=== PATIENT | male | born 1995 | race Caucasian/White ===

== ENCOUNTER 2018-11-06 09:18 | Emergency (ER) | payer OTHER ==
--- NOTE | 2018-11-06 09:32 | ED Physician Documentation ---
PD HPI CHEST PAIN - Stated complaint Stated Complaint: CHEST PAIN - Chief complaint Chief Complaint: Cardiac - History obtained from History obtained from: Patient - History of Present Illness Timing - onset: How many weeks ago (1) Timing - onset during: Other (randomly hurting anterior chest, not related to position, activity, eating, breathing. Has had mild cough and sore throat this week.) Timing - details: Intermittant (more frequent the past 1-2 days, hurting sharp at times for seconds/minute or so.) Quality: Aching, Sharp, Pain Location: Substernal Radiation: Right upper extremity (shoulder). No: Jaw, Neck, Back Worsened by: No: Exertion, Inspiration, Eating, Movement Associated symptoms: Cough (mild cough this week, along with some sore throat.). No: Shortness of air, Nausea, Palpitations Similar symptoms before: Has not had sx before Recently seen: Not recently seen Review of Systems Constitutional: denies: Fever, Chills, Myalgias Nose: denies: Rhinorrhea / runny nose, Congestion Throat: reports: Sore throat (mild for a week) Cardiac: denies: Palpitations Respiratory: reports: Cough (mild for a week). denies: Dyspnea, Wheezing GI: denies: Nausea, Vomiting, Diarrhea Skin: denies: Rash, Lesions Musculoskeletal: denies: Extremity swelling Neurologic: denies: Near syncope Psychiatric: reports: Anxiety. denies: Depressed, Suicidal, Insomnia PD PAST MEDICAL HISTORY - Past Medical History Cardiovascular: None Respiratory: None Neuro: None Endocrine/Autoimmune: None - Present Medications Home Medications: Ambulatory Orders Medication Instructions Recorded Confirmed Naproxen 500 mg PO BID #20 tablet 11/06/18 - Allergies Allergies/Adverse Reactions: Allergies Allergy/AdvReac Type Severity Reaction Status Date / Time No Known Drug Allergies Allergy Verified 11/06/18 09:25 PD ED PE NORMAL - Vitals Vital signs reviewed: Yes - General General: Alert and oriented X 3, No acute distress, Well developed/nourished - HEENT HEENT: Pharynx benign - Neck Neck: Supple, no meningeal sign, No adenopathy - Cardiac Cardiac: RRR, No murmur - Respiratory Respiratory: Clear bilaterally, Other (no chestwall tenderness) - Abdomen Abdomen: Soft, Non tender, Non distended - Derm Derm: Normal color, Warm and dry - Extremities Extremities: No edema, No calf tenderness / cord - Neuro Neuro: Alert and oriented X 3, No motor deficit, Normal speech Results - Vitals Vitals: Vital Signs - 24 hr 11/06/18 11/06/18 09:22 09:35 Temperature 37.1 C Heart Rate 77 76 Respiratory 17 21 Rate Blood Pressure 148/68 H 134/69 H O2 Saturation 99 98 Oxygen O2 Source Room air - EKG (time done) in ER Rhythm: NSR [place]: Normal Intervals: Normal [place] QRS: Normal Ischemia: Normal ST segments. No: ST elevation c/w ischemia, ST depression - Labs Labs: Laboratory Tests 11/06/18 11/06/18 11/06/18 09:59 09:59 09:59 WBC 5.3 RBC 4.94 Hgb 15.0 Hct 43.1 MCV 87.2 MCH 30.4 MCHC 34.8 RDW 12.5 Plt Count 225 MPV 8.9 Neut # (Auto) 2.7 Lymph # (Auto) 1.9 [place] # (Auto) 0.6 Eos # (Auto) 0.2 Baso # (Auto) 0.0 Absolute Nucleated RBC 0.00 Nucleated RBC % 0.0 ESR 1 Sodium 139 Potassium 4.0 Chloride 103 Carbon Dioxide 24 Anion Gap 12.0 BUN 15 Creatinine 0.9 Estimated GFR (MDRD) 107 Glucose 94 Calcium 9.4 Magnesium 2.0 Total Bilirubin 1.1 H AST 19 ALT 15 Alkaline Phosphatase 71 Troponin I B-Natriuretic Peptide Total Protein 7.2 Albumin 4.6 Globulin 2.6 Albumin/Globulin Ratio 1.8 Lipase 28 11/06/18 11/06/18 09:59 09:59 WBC RBC Hgb Hct MCV MCH MCHC RDW Plt Count MPV Neut # (Auto) Lymph # (Auto) [place] # (Auto) Eos # (Auto) Baso # (Auto) Absolute Nucleated RBC Nucleated RBC % ESR Sodium Potassium Chloride Carbon Dioxide Anion Gap BUN Creatinine Estimated GFR (MDRD) Glucose Calcium Magnesium Total Bilirubin AST ALT Alkaline Phosphatase Troponin I < 0.04 B-Natriuretic Peptide 8 Total Protein Albumin Globulin Albumin/Globulin Ratio Lipase - Rads (name of study) chest xray Radiology: Prelim report reviewed (normal), EMP read contemporaneously, See rad report PD MEDICAL DECISION MAKING - ED course Complexity details: reviewed results (Tests are normal. His symptoms are fleeting sharp and atypical. It does not sound like ACS or cardiomyopathy. He has had some mild upper respiratory symptoms of sore throat and cough. Presume some viral chest wall inflammation. Could also be musculoskeletal. Will treat with anti-inflammatories.), considered differential, d/w patient Departure - Departure Disposition: 01 Home, Self Care Clinical Impression: Chest pain Qualifiers: Chest pain type: precordial pain Qualified Code(s): R07.2 - Precordial pain Condition: Stable Record reviewed to determine appropriate education?: Yes Instructions: ED Chest Pain NonCardiac Follow-Up: [facility] [Provider Group] Prescriptions: Naproxen 500 mg PO BID #20 tablet Comments: No signs of serious causes such as heart lungs or vascular. Presume some musculoskeletal pain. I would treated with naproxen anti-inflammatory with food twice daily for the next 7 to 10 days. Add Tylenol if needed. Follow-up with your primary care if not improved over the next few days.
[2018-11-06] MEDS ORDERED: IBUPROFEN 600 MG TABLET PO STA (09:46)
[2018-11-06] MEDS ORDERED: ACETAMINOPHEN 325 MG TABLET PO STA (09:47)
[2018-11-06 10:04] LABS: BASOPHILS % (AUTO) 0.4 %; EOSINOPHILS # (AUTO) 0.2 10^3/uL (0.0-0.7); EOSINOPHILS % (AUTO) 3.9 %; LYMPHOCYTES # (AUTO) 1.9 10^3/uL (1.5-3.5); MEAN CORPUSCULAR HEMOGLOBIN 30.4 pg (27.0-31.0); MEAN CORPUSCULAR HGB CONC 34.8 g/dL (32.0-36.0); MEAN CORPUSCULAR VOLUME 87.2 fL (80.0-94.0); MEAN PLATELET VOLUME 8.9 fL (7.4-11.4); MONOCYTES # (AUTO) 0.6 10^3/uL (0.0-1.0); MONOCYTES % (AUTO) 10.5 %; NEUTROPHILS # (AUTO) 2.7 10^3/uL (1.5-6.6); NEUTROPHILS % (AUTO) 49.8 %; PLT - PLATELET COUNT 225 10^3/uL (130-450); RED BLOOD COUNT 4.94 10^6/uL (4.70-6.10); RED CELL DISTRIBUTION WIDTH 12.5 % (12.0-15.0); WHITE BLOOD COUNT 5.3 x10^3/uL (4.8-10.8)
[2018-11-06 10:19] LABS: ALBUMIN 4.6 g/dL (3.2-5.5); ALBUMIN/GLOBULIN RATIO 1.8 (1.0-2.2); BILIRUBIN,TOTAL 1.1 mg/dL (0.2-1.0); CALCIUM 9.4 mg/dL (8.5-10.3); CREATININE 0.9 mg/dL (0.6-1.2); TOTAL PROTEIN 7.2 g/dL (6.7-8.2)
--- NOTE | 2018-11-06 10:24 | XRAY Report ---
Reason: anterior chest pain; some cough Procedure Date: 11/06/2018 Accession Number: [id number] / [id number] Procedure: XR - Chest 2 View X-Ray CPT Code: 11409 FULL RESULT: EXAM: CHEST RADIOGRAPHY EXAM DATE: 11/06/2018 10:13 AM. CLINICAL HISTORY: Anterior chest pain; some cough. COMPARISON: None. TECHNIQUE: 2 views. FINDINGS: Lungs/Pleura: No focal opacities evident. No pleural effusion. No pneumothorax. Normal volumes. Mediastinum: Heart and mediastinal contours are unremarkable. Other: No acute osseous abnormalities. Mild pectus excavatum. IMPRESSION: 1. No acute disease in the chest. [facility]
[2018-11-06] MEDS ORDERED: CHERRY SYRUP 10 ML UDC PO ONE (10:32)
[2018-11-06] MEDS ORDERED: DEXAMETHASONE 10 MG/ML VIAL PO STA (10:32)
[2018-11-06 11:12] VITALS: BP 105/71
== END 2018-11-06 11:10 | disposition home or self-care (01) ==
LOC: ED 09:18
DX: R07.2 Precordial pain (principal)
CPT/HCPCS: 36415; 71046; 80053; 83690; 83735; 83880; 84484; 85025; 85651; 99284; A9270; 93005